=== PATIENT | male | born 1985 | race Caucasian/White ===

== ENCOUNTER 2017-04-21 20:50 | Emergency (ER) | payer MEDICAID, OTHER ==
[2017-04-21 21:05] VITALS: BP 133/97
== END 2017-04-21 23:07 | disposition left against medical advice (07) ==
LOC: JD.ED 20:50
DX: S01.81XA Laceration without foreign body of other part of head, initial encounter (principal); Z53.21 Procedure and treatment not carried out due to patient leaving prior to being seen by health care provider; X58.XXXA Exposure to other specified factors, initial encounter
CPT/HCPCS: 99282-25